=== PATIENT | female | born 1940 | race Caucasian/White ===

== ENCOUNTER → 2017-03-08 | Outpatient (CLI) | payer MEDICARE, OTHER, MEDICAID ==
[~2017-03-08] MED LIST: BUSP7.5T7 PO; CETI-273 PO; DOCU-168 PO; HYDR50CA5 PO; LOSA50TA52 PO; MAGN400O4 PO; MIRT15TA PO; POLY17PO6 PO; QUET100T PO; QUET50TA PO; TRAZ-173 PO
[2017-03-08 07:17] LABS: HEMOGLOBIN A1C 8.1 % (6.1-7.9)
[2017-03-08 07:21] LABS: ANION GAP 11 MEQ/L (5-15); BUN/CREATININE RATIO 21 RATIO (6-26); CALCIUM 9.1 MG/DL (8.4-10.2); CHLORIDE 106 MEQ/L (98-107); CO2 - CARBON DIOXIDE 27 MEQ/L (22-30); CREATININE 0.9 MG/DL (0.7-1.2); GLOMERULAR FILTRATION RATE 61; GLUCOSE 124 MG/DL (65-110); POTASSIUM 4.1 MEQ/L (3.6-5); SODIUM 144 MEQ/L (134-144)
== END ==
LOC: LABNH.PM 00:28
PROVIDERS: ATTEND Family Medicine
DX: E11.9 Type 2 diabetes mellitus without complications (principal)
CPT/HCPCS: 36415; 80048; 83036; P9604

== ENCOUNTER → 2017-03-14 | Outpatient (CLI) | payer MEDICARE, OTHER, MEDICAID | LOC: LABN.PM 14:05 | PROVIDERS: ATTEND Family Medicine | DX: E11.9 Type 2 diabetes mellitus without complications (principal) | CPT/HCPCS: 82043 ==

== ENCOUNTER → 2017-03-22 | Outpatient (CLI) | payer MEDICARE, OTHER, MEDICAID ==
[2017-03-22 07:08] LABS: ALBUMIN/GLOBULIN RATIO 1.4 RATIO (1.1-2.2); ALKALINE PHOSPHATASE 81 U/L (38-126); ALT (SGPT) 49 U/L (9-52); AST (SGOT) 32 U/L (14-36); TOTAL PROTEIN 6.9 G/DL (6.3-8.2)
[2017-03-24 03:18] LABS: LDL CHOLESTEROL,CALCULATED 174.2 (66-159); RISK FACTOR 6.4 RATIO (0-4.0); VLDL CHOLESTEROL 41.8 MG/DL (0-28)
== END ==
LOC: LABNH.PM 00:56
PROVIDERS: ATTEND Family Medicine
DX: Z79.899 Other long term (current) drug therapy (principal)
CPT/HCPCS: 36415; 80061; 80076; P9604